=== PATIENT | female | born 2000 | race Caucasian/White ===

== ENCOUNTER 2024-12-03 22:27 | Emergency (ER) | payer BC, SELFPAY ==
[2024-12-03 22:28] VITALS: BP 146/94
--- NOTE | 2024-12-03 23:36 | ED.GENMED ---
History of Present Illness
General
Chief Complaint: DVT/Possible Blood Clot
Source: patient
Exam Limitations: none
Time Seen by Provider: 12/03/24 23:01
Nursing documentation reviewed up to this point in time: agreed with
History of Present Illness
History of Present Illness:
24-year-old female with no past medical history who presents the ER today with concerns of left calf pain. She reports that this started yesterday. She reports that it started after she drove home from [place]. She reports that she was going
around for a concert and started noticed left calf cramping in the car. She reports that the pain is intermittent but became more intense today and woke her up from sleep. Occasionally, the pain will radiate to the foot and cause numbness and
tingling sensation. She has no problems with ambulating. She reports that she took Tylenol without relief. The patient not experienced similar pain in the past. She denies any recent falls or trauma to the area. There is no associated back pain
with the symptoms. She not noticed any swelling or redness in the legs.
Review of Systems
Review of Systems
All Other Systems: ROS reviewed and negative except as documented in HPI and ROS
Phy Exam
Physical Exam
Physical Exam:
General: Patient is well appearing and in no acute distress; non-toxic
Skin: Warm and dry, no rashes or lesions
Head: Normocephalic, atraumatic
Eyes: Sclera non-icteric. EOMs intact.
Cardiac: Regular rate
Peripheral Vascular: No lower extremity swelling or edema, 2+ PT and DP pulses bilaterally
Pulm: Normal respiratory effort
Musculoskeletal: Tenderness to palpation of the left calf. Negative Oniel's sign, negative bridges test, left ankle joint stable no ligament laxity negative anterior drawer. Compartments are soft.
Neuro: CN II-XII intact, no focal neurologic deficits.
Psychiatric: Appropriate mood and affect.
Course
Orders/Labs/Results
Orders:
Orders
12/03/24 23:35
Ketorolac [Toradol] 15 mg IM NOW STA
12/03/24 23:38
CPK [Creatine Phosphokinase] Urgent
Complete Blood Count/With Diff Urgent
Comprehensive Metabolic Panel Urgent
12/04/24 00:00
US Periph Venous LOWER Ext LT Urgent
Reason For Exam: left calf pain
12/04/24 00:47
Cyclobenzaprine HCl [Flexeril] 10 mg PO NOW STA
Abnormal Lab Results
12/03/24
23:38
RBC 4.14 L 10^6/uL
(4.20-5.40)
Hct 34.7 L %
(37.0-47.0)
Absolute Monos (auto) 0.9 H 10^3/uL
(0.1-0.6)
12/03/24 23:38
12/03/24 23:38
Vital Signs
Initial and Last Documented VS:
Initial Vital Signs
Temp Pulse Resp BP Pulse Ox
99 F 108 18 146/94 99
12/03/24 22:28 12/03/24 22:28 12/03/24 22:28 12/03/24 22:28 12/03/24 22:28
Last Documented Vital Signs
Temp Pulse Resp BP Pulse Ox
99 F 84 16 128/76 100
12/03/24 22:28 12/04/24 00:19 12/04/24 00:19 12/04/24 00:19 12/04/24 00:19
MDM/Problems Addressed
Differential Diagnosis Includes:
ddx include DVT, calf sprain, compartment syndrome, rhabdomyolysis
MDM/Problems Addressed:
24-year-old female with no past medical history who presents the ER today with concerns of left calf pain. She reports that this started yesterday. She reports that it started after she drove home from [place]. She reports that she was going
around for a concert and started noticed left calf cramping in the car. She does not smoke. She does not use control pills. She is not short of breath, no chest pain. On exam, she has calf tenderness to palpation, but negative Oniel's sign,
negative Bridges's test. DVT study negative. CK normal blood work unremarkable, suspect calf sprain. Patient stable for discharge. Did achieve some pain relief with toradol and cyclobenzaprine, discussed follow up with ortho.
*Pulse Oximetry
SaO2: 99
Oxygen Mode of Delivery: Room air
Patient hypoxic: no
*Critical Care Note
Total Time (30-74mins, 75-104mins- exclusive of procedures): Not Applicable
ED Attending Note
-
Portions of this chart may have been created with voice recognition software.� Occasional wrong word or��sound alike� substitutions may have occurred due to the inherent limitations of voice recognition software.
Discharge Plan
Departure
Patient Disposition: Home (Routine Discharge)
Date of Disposition: 12/04/24
Time of Disposition: 01:44
Patient with high blood pressure during this ER visit?: Yes
Condition: Good
Discharge Problem:
Calf pain
Instructions: Calf Stretches, Muscle, joint, and bone pain (DC), BLOOD PRESSURE
Prescriptions:
New
cyclobenzaprine 15 mg capsule,extended release 24hr
15 mg PO DAILY Qty: 10 0RF
Referrals:
Shamar Newberry MD [Active, Orthopedics] - Call in 1-3 days for appt
NONE,* [Family Provider, Internal Medicine]
Activity Restrictions/Additional Instructions:
Cyclobenzaprine has been sent to your pharmacy. You can take one tablet once daily before bed.
Please call the attached number to schedule an appointment with orthopedics.
PLEASE RETURN TO THE ER SHOULD YOU DEVELOP INABILITY TO AMBULATE, SWELLING OR REDNESS IN YOUR LEGS, FEVERS OR CHILLS, OR ANY OTHER SIGNS OR SYMPTOMS WORRISOME TO YOU.
Interventions
Interventions:
*Risk Screen - Suicide Last Done: 12/03/24 22:31
*General Assessment Last Done: 12/03/24 22:31
*Neglect/Abuse Screening Last Done: 12/03/24 22:31
*ED COVID-19 Vaccine History Last Done: 12/03/24 22:31
*ED Influenza Vaccine History Last Done: 12/03/24 22:31
*Nursing Disposition Last Done: 12/04/24 01:52
ED- Cardiac Assessment Last Done: 12/03/24 23:46
ED- Pulmonary Assessment Last Done: 12/03/24 23:46
ED-Peripheral Vascular Assessment Last Done: 12/03/24 23:46
ED-Skin Assessment Last Done: 12/03/24 23:46
Discharge Date and Time
Discharge Date/Time: 12/04/24 01:53
Print Language: [id number]
[2024-12-03] MEDS: TORADOL 15 MG IM (23:41)
[2024-12-03 23:47] VITALS: BMI 24.7
[2024-12-03 23:47] LABS: Hematocrit 34.7 % (37.0-47.0); Hemoglobin 12.3 g/dL (12.0-16.0); Mean Corp Hgb Conc. 35.4 g/dL (33.0-37.0); Mean Corpuscular Volume 83.8 fL (81.0-99.0); Nucleated Red Blood Cells % 0 %; Platelet Count 336 10^3/uL (130-400); Red Cell Dist. Width 12.1 % (11.5-14.5)
[2024-12-04 00:13] LABS: ALT (SGPT) 16 U/L (0-35); AST (SGOT) 17 U/L (14-36); Albumin 4.8 g/dl (3.5-5.0); Alkaline Phosphatase 42 U/L (38-126); Blood Urea Nitrogen 13 mg/dl (7-17); Calcium 9.8 mg/dl (8.4-10.2); Carbon Dioxide 25 mmol/L (22-30); Chloride 105 mmol/L (98-107); Estimated Creatinine Clearance > 125 ml/min; Glucose 94 mg/dl (70-99); Potassium 4.3 mmol/L (3.5-5.1); Sodium 137 mmol/L (135-145); Total Protein 7.1 g/dl (6.3-8.2); eGFR > 60.00
[2024-12-04 00:19] VITALS: BP 128/76
[2024-12-04] MEDS: FLEXERIL 10 MG PO (00:52)
== END 2024-12-04 01:53 | disposition home or self-care (01) ==
LOC: EMR 22:27
PROVIDERS: Physician Assistant; EMERGENCY PHYSICIAN Emergency Medicine
DX: M79.662 Pain in left lower leg (principal); R20.2 Paresthesia of skin
CPT/HCPCS: 99284; 96374; 80053; 82550; 85025; 93971